=== PATIENT | female | born 1965 | race Caucasian/White ===

== ENCOUNTER 2019-01-26 08:13 | Emergency (ER) | payer OTHER ==
[2019-01-26 08:27] VITALS: BP 134/87
--- NOTE | 2019-01-26 08:50 | UC ---
HPI BURN - HPI Summary HPI Summary: 53-year-old woman comes in with a chief complaint of a chemical burn to her left hand. Yesterday she was applying cement with her bare hands. Initially she did not noticed any burning. However stop progressed roldan developed on the thenar eminence and second third and fourth fingers of the left hand. She did clean it in hydrogen peroxide and soap and water. She believes her tetanus is up-to-date and declines a tetanus immunization here in clinic today. It's tender to palpation. She is full range of motion. She does have a dried concrete on the thenar eminence and also on the fourth finger. There is no circumferential burn. There is swelling which is worst the fourth finger. Swelling does constrict movement some. - History of Current Complaint Chief Complaint: UCBurn Stated Complaint: BURN Time Seen by Provider: 01/26/19 08:23 Pain Intensity: 3 - Allergy/Home Medications Allergies/Adverse Reactions: Allergies Allergy/AdvReac Type Severity Reaction Status Date / Time No Known Allergies Allergy Verified 01/26/19 08:18 Home Medications: Home Medications Imipramine HCl [Tofranil] 10 mg PO BEDTIME 01/26/19 [History Confirmed 01/26/19] Modafinil TAB* [Provigil TAB*] 100 mg PO DAILY 01/26/19 [History Confirmed 01/26] PMH/Surg Hx/FS Hx/Imm Hx Previously Healthy: Yes - Surgical History Surgical History: Yes Surgery Procedure, Year, and Place: tonsilectomy - Family History Known Family History: Positive: Non-Contributory - Social History Alcohol Use: None Substance Use Type: None Smoking Status (MU): Never Smoked Tobacco Review of Systems All Other Systems Reviewed And Are Negative: Yes Constitutional: Positive: Negative Skin: Positive: Other - SEE HPI Eyes: Positive: Negative ENT: Positive: Negative Respiratory: Positive: Negative Cardiovascular: Positive: Negative Gastrointestinal: Positive: Negative Motor: Positive: Negative Neurovascular: Positive: Negative Musculoskeletal: Positive: Negative Neurological: Positive: Negative Psychological: Positive: Negative Is Patient Immunocompromised?: No Physical Exam Triage Information Reviewed: Yes Appearance: Well-Appearing, No Pain Distress, Well-Nourished Vital Signs: Initial Vital Signs Temp 98.5 F 01/26/19 08:20 Pulse 76 01/26/19 08:20 Resp 18 01/26/19 08:20 BP 134/87 01/26/19 08:20 Pulse Ox 97 01/26/19 08:20 Vital Signs Reviewed: Yes Eye Exam: Normal Eyes: Positive: Conjunctiva Clear Neck: Positive: Supple Respiratory: Positive: No respiratory distress Neurological: Positive: Alert Psychological: Positive: Age Appropriate Behavior Skin: Positive: Other - Left hand palmar aspect on the thenar eminence there is a second-degree burn 1 cm long 5 mm wide. There are 5 mm second-degree roldan on the distal palmar surface of the second and third fingers. On the fourth finger there is a 5 mm second-degree burn and a 1 cm diameter second degree burn which appears to have some cement still and it. There is underlying erythema of the second third fourth fingers none of this is circumferential. Normal sensation normal capillary refill. There is swelling of the second third fourth fingers which is the worst the fourth finger. Patient is able to make a fist and extend it fully with some discomfort secondary to the swelling. Burn Calculation - [place] Formula for Fluid Resuscitation Weight: 176 lb 24 -Hour Fluid Replacement: 0.0 Course/Dx Burn - Course Course Of Treatment: Patient reports she is up-to-date with her tetanus and declines a tetanus here. Poison control was consult and they recommended the same burn treatment as a non-chemical burn. Patient's most concerned about infection. Planning on mupirocin as the antibiotic topically. I believe swelling and erythema is due to the chemical burn irritation. Patient's hand was soaked in clinic. The discoloration in the second-degree burn of the left fourth finger is possibly retained cement or burned tissue. I discussed with the patient that if there is retained cement there could be further injury to include potentially causing tendon injury. Patient is on Keflex 500 mg by mouth 3 times a day. We discussed the [facility] in [place] and I recommended follow-up with the [facility]. I let her know that if her injury appeared to be getting worse rather than better she should go to the [facility] emergency department for further evaluation and care potentially with the burn center. Plan is to follow-up with the [facility]. - Diagnoses Provider Diagnosis: Chemical burn of left hand Discharge - Sign-Out/Discharge Documenting (check all that apply): Patient Departure All imaging exams completed and their final reports reviewed: No Studies - Discharge Plan Condition: Stable Disposition: HOME Prescriptions: Cephalexin CAP* [Keflex CAP*] 500 mg PO TID #30 cap Mupirocin 1 applic TOPICAL BID #22 gm Patient Education Materials: Chemical Skin Burn (ED) Referrals: Dawit Meyer MD [Primary Care Provider] - Additional Instructions: FOLLOW UP WITH THE [facility]; [address] [place] [address] GET RECHECKED SOONER IF YOUR CONDITION WORSENS OR ANY QUESTIONS OR CONCERNS. - Billing Disposition and Condition Condition: STABLE Disposition: Home
== END 2019-01-26 09:25 | disposition home or self-care (01) ==
LOC: UCEAST 08:13
DX: T23.052A Burn of unspecified degree of left palm, initial encounter (principal); T31.0 Burns involving less than 10% of body surface; X08.8XXA Exposure to other specified smoke, fire and flames, initial encounter; Y93.H9 Activity, other involving exterior property and land maintenance, building and construction; Y92.017 Garden or yard in single-family (private) house as the place of occurrence of the external cause; Y99.8 Other external cause status
CPT/HCPCS: 99213; G0463